=== PATIENT | female | born 1975 | race Caucasian/White ===

== ENCOUNTER → 2017-05-09 | Outpatient (REF) | payer BC, OTHER ==
[~2017-05-09] MED LIST: /CELE20CA; /PANT40TA PO; CALC500T49 OR; CALCCHW12 OR; COLA50CA3 PO; DIAZ10TA2 PO; HYDR-3719 PO; IBUP800T OR; LIDO5DIS TOP; NAPR500T PO; OVRAL OR; SKEL800T5; SOMA350T PO; SPRI28TA PO; TRAM50TA2; ULTRTA OR; VICO5TA PO; VITAMIN D50000 UNT OR; VOLT1GEL; XANA0.25 PO; ZOLO100T PO; ZYRT10CA PO; [UNRECOGNIZED DRUG - OTHER] OR
== END ==
LOC: M LAB REF 16:34
PROVIDERS: ATTEND Family Medicine
DX: Z02.0 Encounter for examination for admission to educational institution (principal)

== ENCOUNTER 2017-08-12 17:24 | Emergency (ER) | payer BC ==
[~2017-08-12] VITALS: Ht 167.6 cm; Wt 75.0 kg
[~2017-08-12 17:24] MED LIST changes: -DIAZ10TA2 PO; -HYDR-3719 PO; -NAPR500T PO; -SOMA350T PO; -ZYRT10CA PO
[2017-08-12] MEDS ORDERED: ZYRT10CA PO (17:35)
[2017-08-12] MEDS ORDERED: HYDR-3719 PO (17:35)
[2017-08-12] MEDS ORDERED: SOMA350T PO (17:35)
[2017-08-12] MEDS ORDERED: DIAZ10TA2 PO (17:35)
[2017-08-12] MEDS ORDERED: ASPIRIN 81 MG CHEW TABLET PO ONE (19:30)
[2017-08-12] MEDS ORDERED: ONDANSETRON 4MG/2ML VIAL (J2405) IV ONE (19:30)
[2017-08-12] MEDS: NITROGLYCERIN 0.4 MG SUBL TABLET SL PRN ×3 (19:50→20:29)
[2017-08-12 19:56] LABS: BASO # 0.1 10^3/uL (0.0-0.2); BASO % 0.6 % (0.0-1.0); EOS # 0.1 10^3/uL (0.0-0.50); EOS % 0.6 % (0.0-3.0); IMMATURE GRANULOCYTE % 0.3 % (0-0); LYMPH # 2.8 10^3/uL (1.5-4.5); LYMPH % 28.5 % (24.0-44.0); MEAN CORPUSCULAR HEMOGLOBIN 31.5 pg (27.0-33.0); MEAN CORPUSCULAR HGB CONC 33.9 g/dl (32.0-36.5); MONO # 0.7 10^3/uL (0.0-0.8); MONO % 6.7 % (0.0-5.0); NEUTROPHILS # 6.2 10^3/uL (1.8-7.7); NEUTROPHILS % 63.3 % (36.0-66.0); PLATELET COUNT, AUTOMATED 350 10^3/uL (150-450); RED CELL DISTRIBUTION WIDTH 12.4 % (11.5-14.5); WHITE BLOOD COUNT 9.9 10^3/uL (4.0-10.0)
[2017-08-12 20:00] LABS: ADD MORPHOLOGY? NO
[2017-08-12 20:02] LABS: ANION GAP 5 MEQ/L (8-16); BLOOD UREA NITROGEN 7 MG/DL (7-18); CALCIUM LEVEL 8.8 MG/DL (8.5-10.1); CARBON DIOXIDE LEVEL 27 MEQ/L (21-32); CHLORIDE LEVEL 105 MEQ/L (98-107); CREATININE FOR GFR 0.57 MG/DL (0.55-1.02); GLOMERULAR FILTRATION RATE > 60.0 (>60); GLUCOSE, FASTING 87 MG/DL (70-105); POTASSIUM SERUM 4.1 MEQ/L (3.5-5.1); SODIUM LEVEL 137 MEQ/L (136-145)
[2017-08-12 20:17] LABS: CONTROL LINE HCG INT CTR LINE PRESENT
[2017-08-12 20:29] VITALS: BP 124/72
[2017-08-12] MEDS ORDERED: NAPR500T PO (22:30)
[2017-08-12 22:54] VITALS: BP 138/92
--- NOTE | 2017-08-13 06:28 | ECGEPIP ---
Stationary ECG Study [facility] - ED Test Date: 2017-08-12 Pat Name: LIDIA HULL Department: Room: - Gender: F [employer] Supervisor: maria guadalupe : 1975 Requested By: JANE Briggs Order Number: [id number] Reading MD: Toi Babb Measurements Intervals [place] Rate: 80 P: 24 OK: 133 QRS: 62 QRSD: 81 T: 41 QT: 375 QTc: 433 Interpretive Statements SINUS RHYTHM NO PRIORS Electronically Signed On 08-13-2017 6:28:23 EDT by Toi Babb
--- NOTE | 2017-08-13 07:47 | REP ---
PA and lateral chest: Comparison is 03/18/2014. The lung hanson are clear. The cardiac size is normal The beth, mediastinum, and bony thorax are unremarkable. Impression: Negative PA and lateral chest. There is no interval change. Signed by Julio Quiñones MD 08/13/2017 07:37 A
== END 2017-08-12 23:04 | disposition home or self-care (01) ==
LOC: M ED 17:24
DX: R07.89 Other chest pain (principal); K21.9 Gastro-esophageal reflux disease without esophagitis; F17.210 Nicotine dependence, cigarettes, uncomplicated; Z79.899 Other long term (current) drug therapy; Z88.5 Allergy status to narcotic agent; Z88.0 Allergy status to penicillin; Z88.2 Allergy status to sulfonamides; Z82.49 Family history of ischemic heart disease and other diseases of the circulatory system
CPT/HCPCS: 36415; 71020; 80048; 82550; 82553; 84703; 85025; 85379; 86140; 93005; 93041; 94760; 96374; 99285; J2405

== ENCOUNTER 2020-04-28 04:31 | Emergency (ER) | payer OTHER, BC ==
[~2020-04-28] VITALS: Ht 165.1 cm; Wt 72.4 kg
[~2020-04-28 04:31] MED LIST changes: -/CELE20CA; -/PANT40TA PO; +CELE1CAP4; +DIAZ10TA2 PO; +HYDR-3719 PO; +NAPR-837 PO; +PROT1TAB2 PO; +SOMA350T PO; +ZYRT10CA PO
[2020-04-28 04:32] VITALS: BP 120/72
[2020-04-28] MEDS ORDERED: IBUP80TA PO (04:41)
== END 2020-04-28 07:03 | disposition home or self-care (01) ==
LOC: M ED 04:31
DX: M54.5 Low back pain (principal)

== ENCOUNTER → 2020-10-13 | Outpatient (REF) | payer SELFPAY ==
[~2020-10-13] MED LIST changes: +IBUP80TA PO
== END ==
LOC: M LABSMTC 13:41 → EDSTATUS 14:00 → M LABSMTC 14:41
PROVIDERS: ATTEND Pediatrics
DX: Z20.828 Contact with and (suspected) exposure to other viral communicable diseases (principal)

== ENCOUNTER 2021-01-29 16:32 | Emergency (ER) | payer OTHER, SELFPAY ==
[~2021-01-29] VITALS: Ht 167.6 cm; Wt 76.9 kg
[2021-01-29 16:33] VITALS: BP 134/70
[2021-01-29] MEDS ORDERED: PANT40TA29 (16:42)
[2021-01-29] MEDS ORDERED: HYDR-4517 (16:42)
[2021-01-29] MEDS ORDERED: CARI1TAB7 (16:42)
[2021-01-29] MEDS ORDERED: CETIRIZINE (ZyrTEC) 10 MG TAB PO ONE (17:40)
[2021-01-29] MEDS ORDERED: FAMOTIDINE 20 MG TAB PO ONE ×2 (17:40)
[2021-01-29] MEDS ORDERED: predniSONE 20 MG TAB PO ONE (17:40)
[2021-01-29] MEDS ORDERED: MEDR4PAK PO (17:47)
== END 2021-01-29 17:54 | disposition home or self-care (01) ==
LOC: M ED 16:32
DX: T78.40XA Allergy, unspecified, initial encounter (principal); L29.9 Pruritus, unspecified; F17.200 Nicotine dependence, unspecified, uncomplicated; Z88.0 Allergy status to penicillin; Z88.2 Allergy status to sulfonamides; Z79.899 Other long term (current) drug therapy

== ENCOUNTER → 2021-04-27 | Outpatient (REF) ==
[~2021-04-27] MED LIST changes: +CARI1TAB7; +HYDR-4517; +MEDR4PAK PO; +PANT40TA29
== END ==
LOC: M LABSMTC 10:49
PROVIDERS: ATTEND Pediatrics
DX: Z11.52 Encounter for screening for COVID-19 (principal)

== ENCOUNTER → 2021-05-09 | Outpatient (CLI) | payer BC ==
[~2021-05-09] MED LIST changes: +ISOVUE-370 76% 100ML VIAL As Ordered ONE
--- NOTE | 2021-05-09 18:38 | REPVR ---
PROCEDURE INFORMATION: Exam: CT Neck With Contrast Exam date and time: 05/09/2021 5:40 PM Age: 45 years old Clinical indication: Enlarged lymph nodes; Additional info: Rhinitis, enlarged lymph nodes TECHNIQUE: Imaging protocol: Computed tomography images of the neck with contrast. Radiation optimization: All CT scans at this facility use at least one of these dose optimization techniques: automated exposure control; mA and/or kV adjustment per patient size (includes targeted exams where dose is matched to clinical indication); or iterative reconstruction. Contrast material: ISOVUE 370; Contrast volume: 75 ml; Contrast route: INTRAVENOUS (IV); COMPARISON: CT Maxilofacial w/out contrast 05/09/2021 5:44:10 PM FINDINGS: Paranasal sinuses: The paranasal sinuses are evaluated separately on a dedicated exam. Nasopharynx: Unremarkable. Oropharynx: Unremarkable. No significant tonsillar enlargement. Hypopharynx: Unremarkable. Larynx: Unremarkable. Normal epiglottis. Retropharyngeal space: Unremarkable. Submandibular/Parotid glands: Normal. Glands are normal in size. Thyroid: Normal. No enlarged or calcified nodules. Lymph nodes: No pathologically enlarged lymph nodes identified. Scattered cervical lymph nodes are not enlarged by short axis measurements, and are likely normal or reactive lymph nodes, for example a right jugulodigastric lymph node measuring 1.6 x 0.8 cm and a left accessory jasper chain lymph node measuring 1.2 x 0.9 cm. Trachea: Visualized trachea is unremarkable. Lungs: Unremarkable as visualized. Bones/joints: Unremarkable. No acute fracture. Soft tissues: Unremarkable. No significant soft tissue swelling. IMPRESSION: No pathologically enlarged lymph nodes identified. Electronically signed by: Pao Romero On 05/09/2021 18:38:31 PM
--- NOTE | 2021-05-09 18:45 | REPVR ---
PROCEDURE INFORMATION: Exam: CT Maxillofacial Without Contrast, Sinus Exam date and time: 05/09/2021 5:40 PM Age: 45 years old Clinical indication: Sinusitis; Type not specified; Additional info: Rhinitis, enlarged lymph nodes TECHNIQUE: Imaging protocol: CT Maxillofacial without contrast. Focus on the sinuses. Radiation optimization: All CT scans at this facility use at least one of these dose optimization techniques: automated exposure control; mA and/or kV adjustment per patient size (includes targeted exams where dose is matched to clinical indication); or iterative reconstruction. COMPARISON: No relevant prior studies available. FINDINGS: Frontal sinuses: Normal. No air-fluid levels. Ethmoid air cells: Moderate opacification of bilateral ethmoid air cells. Sphenoid sinuses: The sphenoid sinuses are clear. Maxillary sinuses: Mild to moderate right maxillary sinus mucosal thickening. Nonspecific fluid in the left maxillary sinus. Nasal cavity/Septum: No nasal cavity masses. Orbital cavity: Orbits are normal. Globes are unremarkable. Bones/joints: Unremarkable. Soft tissues: Unremarkable. Dental: Left maxillary periapical lucencies consistent with endodontal disease. IMPRESSION: 1. Nrii-lu-xskxdbif chronic sinusitis. 2. Nonspecific fluid in the left maxillary sinus, can be seen in the setting of acute sinusitis. Electronically signed by: Pao Romero On 05/09/2021 18:45:20 PM
== END ==
LOC: M RAD 17:08
PROVIDERS: ATTEND Family Medicine
DX: R59.0 Localized enlarged lymph nodes (principal); J30.9 Allergic rhinitis, unspecified
CPT/HCPCS: 70486; 70491; Q9967

== ENCOUNTER → 2021-09-20 | Outpatient (REF) ==
[~2021-09-20] MED LIST changes: -ISOVUE-370 76% 100ML VIAL As Ordered ONE
== END ==
LOC: M EMP 16:03
PROVIDERS: ATTEND Family Medicine
DX: Z11.52 Encounter for screening for COVID-19 (principal)

== ENCOUNTER → 2022-02-26 | Outpatient (REF) ==
[2022-02-26 12:47] LABS: RSV AMPLIFICATION NEGATIVE (NEGATIVE)
== END ==
LOC: M EMP 11:02
PROVIDERS: ATTEND Family Medicine
DX: Z11.52 Encounter for screening for COVID-19 (principal)

== ENCOUNTER → 2022-07-16 | Outpatient (REF) | LOC: M EMP 13:01 | PROVIDERS: ATTEND Family Medicine | DX: Z20.822 Contact with and (suspected) exposure to COVID-19 (principal) ==

== ENCOUNTER 2024-02-20 16:32 | Emergency (ER) | payer SELFPAY ==
[~2024-02-20] VITALS: Ht 167.6 cm; Wt 72.7 kg
[2024-02-20 16:36] VITALS: BP 128/64; TEMP 98.2; O2SAT 95
== END 2024-02-20 21:39 | disposition left against medical advice (07) ==
LOC: M ED 16:32
DX: Z53.21 Procedure and treatment not carried out due to patient leaving prior to being seen by health care provider (principal)

== ENCOUNTER 2024-12-02 11:27 | Day surgery (SDC) | payer BC ==
[~2024-12-02] VITALS: Ht 167.6 cm; Wt 69.7 kg
[~2024-12-02 11:27] MED LIST changes: +AMOX875T2 PO; -CARI1TAB7; +CARI1TAB7 PO; +CLAR10CA3 PO; +DYMI137S; +FLON1SPR; +NS 250 ML IV ONE; -PANT40TA29; +PANT40TA29 PO
[2024-12-02 13:13] VITALS: BP 121/55; O2SAT 98
== END 2024-12-02 13:20 | disposition home or self-care (01) ==
LOC: M OPP 11:27
PROVIDERS: ATTEND Surgery
DX: Z12.11 Encounter for screening for malignant neoplasm of colon (principal); D12.5 Benign neoplasm of sigmoid colon; K57.30 Diverticulosis of large intestine without perforation or abscess without bleeding; K44.9 Diaphragmatic hernia without obstruction or gangrene; R13.10 Dysphagia, unspecified; Z88.0 Allergy status to penicillin; Z88.2 Allergy status to sulfonamides; Z88.5 Allergy status to narcotic agent; Z79.891 Long term (current) use of opiate analgesic; Z79.899 Other long term (current) drug therapy; F17.210 Nicotine dependence, cigarettes, uncomplicated